=== PATIENT | female | born 1970 | race Two or more races ===

== ENCOUNTER 2019-11-26 11:39 | Emergency (ER) | payer MEDICAID, OTHER ==
[~2019-11-26] VITALS: Ht 152.4 cm; Wt 59.9 kg
[2019-11-26] MEDS ORDERED: Tetanus/Diptheria/Pertussis IM ONE (12:00)
[2019-11-26] MEDS ORDERED: Cephalexin 500mg cap ORAL ONE (12:00)
[2019-11-26] MEDS ORDERED: Bupivacaine 0.5% Inj 30 ml vial INJ ONE (12:00)
[2019-11-26 12:20] VITALS: BP 139/73
--- NOTE | 2019-11-26 12:25 | Diagnostic Imaging Report ---
EXAM: XR Left Hand Complete, 3 or More Views CLINICAL HISTORY: PAIN TECHNIQUE: Frontal, lateral and oblique views of the left hand. COMPARISON: No relevant prior studies available. FINDINGS: Bones/joints: Osteopenic. No acute fracture. No dislocation. Joint spaces are maintained. Soft tissues: Unremarkable. No radiopaque foreign body. IMPRESSION: Osteopenic. No acute process.
--- NOTE | 2019-11-26 12:26 | Diagnostic Imaging Report ---
EXAM: XR Left Fingers, 2 or More Views CLINICAL HISTORY: PAIN TECHNIQUE: Frontal, lateral and oblique views of the third fingers of the left hand. COMPARISON: No relevant prior studies available. FINDINGS: Bones/joints: Osteopenic. Joint spaces are well-maintained. No acute fracture. No dislocation. Soft tissues: Unremarkable. No radiopaque foreign body. IMPRESSION: Osteopenic. No acute process.
--- NOTE | 2019-11-26 12:59 | Emergency Room Report ---
History of Present Illness General Chief Complaint: Laceration Source: Patient Present Illness HPI Patient is a 49-year-old female who presents after increased pain to the left hand. Patient had reportedly been cutting pumpkin when she accidentally cut her left hand. Patient is right-hand dominant. She is not currently working. Patient had reporting having increased pain to the left middle finger as well as part of the palm. Denies any pulsatile bleeding. Reports having some numbness to the tip of the finger. Denies any other locations of injury. Denies recent tetanus vaccine. Denies any difficulty with movement. He is cleaning Allergies: Coded Allergies: No Known Allergies (Unverified , 11/26/19) COVID-19 Screening Contact w/high risk pt: No Experienced COVID-19 symptoms?: No COVID-19 Testing performed SHANK BONER: No Patient History Past Medical History: see triage record Last Menstrual Period: na Reviewed Nursing Documentation: PMH: Agreed; PSxH: Agreed Nursing Documentation-PMH Past Medical History: No Stated History Review of Systems All Other Systems: negative except mentioned in HPI Physical Exam Vital Signs Date Time Temp Pulse Resp B/P (MAP) Pulse Ox O2 Delivery O2 Flow Rate FiO2 11/26/19 11:45 99.0 85 17 143/71 (95) 97 Room Air Sp02 EP Interpretation: reviewed, normal General Appearance: normal inspection, well appearing, no apparent distress, alert, GCS 15 Head: atraumatic ENT: normal ENT inspection, hearing grossly normal, normal voice Neck: normal inspection, full range of motion, supple, no bony tend Respiratory: normal inspection, lungs clear, normal breath sounds, no respiratory distress, no retraction, no wheezing Cardiovascular #1: regular rate, rhythm, no edema Gastrointestinal: normal inspection, normal bowel sounds, non tender, soft, no guarding, no hernia Genitourinary: no CVA tenderness Musculoskeletal: normal inspection, back normal, normal range of motion Neurologic: alert, motor strength/tone normal, wool sacker III-XII nml as tested, oriented x3, responsive, speech normal, normal inspection, other - normal profundus tendon, normal flexor superficialis Psychiatric: normal inspection, judgement/insight normal, mood/affect normal Skin: laceration - 3 cm linear to finger Medical Decision Making Diagnostic Impression: Primary Impression: Finger laceration Additional Impression: Nerve injury ER Course Patient presented for laceration. Differential diagnosis include was not limited to nerve injury, foreign body, tendon injury among others. Because of complexity of patient's case imaging studies were ordered. Imaging of the left hand showed no evidence of acute fracture or foreign body. Patient has intact function of the left middle finger FDS and FDP she appears to have some numbness to the distal part of the finger consistent with a digital nerve injury. Laceration was anesthetized with a digital block 4 cc of Marcaine 0.5% laceration was repaired with 4-0 Prolene suture horizontal mattress #5 estimated blood loss approximate 50 cc. Patient tolerated this well. Wound was irrigated by tech and a sterile dressing was applied. Patient was placed in a splint. She was given Keflex as well as tetanus update. Patient was advised to follow-up with hand specialist for definitive repair of her nerve. Patient appears to be stable for outpatient management. She is given prescription for pain medication. The patient is advised to follow up with primary care doctor in 1-2 days for referral. Patient is advised to return if any worsening condition or if any changes in status that are concerning. This report is dictated with [email or web address] instructor technical training software which may occasionally lead to discrepancies related to use of this software. Last Vital Signs Date Time Temp Pulse Resp B/P (MAP) Pulse Ox O2 Delivery O2 Flow Rate FiO2 11/26/19 12:20 99.0 67 18 139/73 99 Room Air Status: improved Disposition: HOME, SELF-CARE Condition: Stable Norman Quintero MD Nov 26, 2019 12:59
[2019-11-26] MEDS ORDERED: CEPHALEXIN500 MG ORAL (13:01)
[2019-11-26] MEDS ORDERED: NORCO 5-325 TA1 EAC1 ORAL (13:01)
[2019-11-26] MEDS ORDERED: Bacitracin Oint UD TOPIC ONE ×2 (13:09→13:15)
[2019-11-26 13:15] VITALS: BP 134/72
== END 2019-11-26 13:15 | disposition home or self-care (01) ==
LOC: EMR 12:00
DX: S61.213A Laceration without foreign body of left middle finger without damage to nail, initial encounter (principal); S64.493A Injury of digital nerve of left middle finger, initial encounter; W45.8XXA Other foreign body or object entering through skin, initial encounter; Y92.9 Unspecified place or not applicable; Z23 Encounter for immunization
CPT/HCPCS: 12002; 73130; 73140; 90471; 90715; S0020; Z7502; 99284